=== PATIENT | female | born 1995 | race Caucasian/White ===

== ENCOUNTER 2017-02-21 10:41 | Emergency (ER) | payer SELFPAY ==
[~2017-02-21 10:41] MED LIST: BACT PO; TRI-TAB PO
[2017-02-21 10:43] VITALS: BP 149/86; PULSE 86; RESP 18; TEMP 99.1; O2SAT 99
== END 2017-02-21 11:38 | disposition left against medical advice (07) ==
LOC: NEPK 10:41
DX: S61.412A Laceration without foreign body of left hand, initial encounter (principal); X58.XXXA Exposure to other specified factors, initial encounter; Z53.21 Procedure and treatment not carried out due to patient leaving prior to being seen by health care provider
CPT/HCPCS: 99281